=== PATIENT | male | born 1990 | race Two or more races ===

== ENCOUNTER 2017-08-07 01:44 | Emergency (ER) | payer MEDICAID ==
[~2017-08-07] VITALS: Ht 165.1 cm; Wt 90.7 kg
[~2017-08-07 01:44] MED LIST: CIPROFLOXACIN500 M2 ORAL; FLOMAX0.4 MG ORAL; GLUCOPHAGE500 MG PO; IBUPROFEN600 MG ORAL; KEFLEX500 MG ORAL; NORCO 5-325 TA1 EACH ORAL
[2017-08-07 01:55] VITALS: BP 145/91
[2017-08-07] MEDS ORDERED: ROBAXIN-750750 MG PO (02:07)
[2017-08-07] MEDS ORDERED: TYLENOL325 MG ORAL (02:07)
[2017-08-07 02:10] VITALS: BP 145/91
--- NOTE | 2017-08-07 02:38 | Emergency Room Report ---
History of Present Illness General Chief Complaint: Back Pain-No Injury Source: Patient Present Illness HPI 27-year-old male presents with 4 days of right upper back pain States she woke up with it one morning after sleeping on right side "awkwardly ". Has been taking Motrin for the last couple of days including a dose of aspirin today Was taking motrin [id number] on empty stomach and developed stomach pain and nausea 1 episode of vomiting denies any falls or trauma to the area Allergies: Coded Allergies: No Known Allergies (Verified , 05/31/10) Patient History Past Medical History: none Past Surgical History: none Pertinent Family History: none Social History: Denies: smoking, alcohol use, drug use Immunizations: UTD Reviewed Nursing Documentation: PMH: Agreed, PSxH: Agreed Nursing Documentation-PMH Hx Cardiac Problems: Yes Hx Hypertension: Yes Hx Diabetes: Yes Hx Cancer: No Hx Gastrointestinal Problems: No Hx Neurological Problems: No Hx Neurologic Surgery: No Review of Systems All Other Systems: negative except mentioned in HPI Physical Exam Vital Signs Date Time Temp Pulse Resp B/P (MAP) Pulse Ox O2 Delivery O2 Flow Rate FiO2 08/07/17 01:50 99.4 117 16 145/91 97 Room Air 99.3 Sp02 EP Interpretation: reviewed, normal General Appearance: normal inspection, well appearing, no apparent distress, alert, GCS 15, non-toxic Head: normocephalic, atraumatic Eyes: bilateral eye PERRL, bilateral eye EOMI ENT: normal ENT inspection, hearing grossly normal, normal pharynx, no angioedema, normal voice, TMs + canals normal, uvula midline, moist mucus membranes Neck: normal inspection, full range of motion, supple, thyroid normal, no meningismus, no bony tend Respiratory: normal inspection, lungs clear, normal breath sounds, no rhonchi, no respiratory distress, no retraction, no accessory muscle use, no wheezing, speaking full sentences Cardiovascular #1: regular rate, rhythm, no edema, no JVD, normal capillary refill Gastrointestinal: normal inspection, normal bowel sounds, non tender, soft, no mass, no peritonitis, non-distended, no guarding, no hernia, no pulsatile mass Genitourinary: no CVA tenderness Musculoskeletal: normal inspection, back normal, normal range of motion, no calf tenderness, pelvis stable, Itzel's Sign negative, other - Upper right thoracic back: palpable muscle tension/spasm Neurologic: normal inspection, alert, oriented x3, responsive, boarder machine III-XII nml as tested, motor strength/tone normal, cerebellar normal, normal gait, speech normal Psychiatric: normal inspection, judgement/insight normal, mood/affect normal, no suicidal/homicidal ideation, no delusions Skin: normal inspection, normal color, no rash Lymphatic: normal inspection, no adenopathy Medical Decision Making Diagnostic Impression: Primary Impression: Back pain Qualified Codes: M54.6 - Pain in thoracic spine ER Course Upper right thoracic back spasm ?gastritis from too much NSAID Only ONE dose of ASA, so low suspicion for ASA toxicity Advised him to AVOID NSAIDs Gave valium in ED ER course: Patient has remained stable during ED stay. Disposition: Patient is to be discharged to home. Prescriptions given are tylenol, robaxin Patient is instructed to follow up with their primary care doctor within 5 days. Strict return precautions discussed with patient such as fever, chills, worsening/severe pain, nausea, vomiting, which may indicate severe illness. Patient verbalizes understanding and agrees with plan. Please note that this Emergency Department Report was dictated using [employer] enlisted advisor technology software, occasionally this can lead to erroneous entry secondary to interpretation by the dictation equipment Last Vital Signs Date Time Temp Pulse Resp B/P (MAP) Pulse Ox O2 Delivery O2 Flow Rate FiO2 08/07/17 02:10 99.3 116 16 145/91 97 Room Air 99.3 Status: improved Disposition: HOME, SELF-CARE Condition: Improved Scripts Methocarbamol* (ROBAXIN-750*) 750 Mg Tablet 750 MG PO TID for 7 Days, #30 TAB 0 Refills Prov: ZIA HORVATH M.D. 08/07/17 Acetaminophen (Tylenol) 325 Mg Tablet 650 MG ORAL Q6H Y for Prn Pain/Headache/Temp > 101, #30 TAB 0 Refills Prov: ZIA HORVATH M.D. 08/07/17 Referrals: LACHELLE RODRIGUES,REFERRING (PCP) Patient Instructions: Back Pain, Adult ZIA HORVATH M.D. Aug 07, 2017 02:38
== END 2017-08-07 02:30 | disposition home or self-care (01) ==
LOC: EMR 02:13
DX: M54.6 Pain in thoracic spine (principal); I10 Essential (primary) hypertension; E11.9 Type 2 diabetes mellitus without complications
CPT/HCPCS: 99284

== ENCOUNTER 2019-04-24 21:53 | Observation (INO) | payer MEDICAID, OTHER ==
[~2019-04-24] VITALS: Ht 165.1 cm; Wt 90.7 kg
[2019-04-24 21:53] VITALS: BP 124/73
[~2019-04-24 21:53] MED LIST changes: +ROBAXIN-750750 MG PO; +TYLENOL325 MG ORAL
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
[2019-04-24] MEDS ORDERED: Tetanus/Diptheria/Pertussis IM ONE (22:15)
[2019-04-24] MEDS ORDERED: Augmentin 875mg Tab ORAL ONE (22:15)
[2019-04-24 23:21] LABS: ANION GAP 14 mmol/L (5-15); BLOOD UREA NITROGEN 9 mg/dL (7-18); CALCIUM 8.6 MG/DL (8.5-10.1); CARBON DIOXIDE 21 MMOL/L (21-32); CHLORIDE 105 MMOL/L (98-107); CREATININE 1.2 MG/DL (0.55-1.30); POTASSIUM 3.8 MMOL/L (3.5-5.1); SODIUM 140 MMOL/L (136-145)
--- NOTE | 2019-04-24 23:30 | NUR ---
ED Nurse Note: Patient resting comfortably withn o Addendum: 04/25/19 at 0049 by SUSANNA ED Nurse Note: Patient tolerated blood draw well, labs sent down. Patient is resting with law enforcement at bedside.
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
[2019-04-25] VITALS (11 sets, daily range): BP systolic 121–159; BP diastolic 74–99
--- NOTE | 2019-04-25 | NUR ---
ED Nurse Note: Patient rendered consent by surgeon. Patient verbalized understanding and signed consent form.
[2019-04-25 00:01] LABS: HEMATOCRIT 44.9 % (42.0-52.0); HEMOGLOBIN 15.3 G/DL (14.2-18.0); MEAN CORPUSCULAR VOLUME 84 FL (80-99); PLATELET COUNT 323 K/UL (150-450); RED BLOOD COUNT 5.35 M/UL (4.70-6.10); RED CELL DISTRIBUTION WIDTH 12.9 % (11.6-14.8)
[2019-04-25] MEDS ORDERED: CEPHALEXIN500 MG ORAL (00:06)
[2019-04-25] MEDS ORDERED: Morphine Sulfate 10mg/ml Inj ONE (00:14)
[2019-04-25] MEDS ORDERED: Midazolam 2mg/2ml Inj ONE (00:14)
[2019-04-25] MEDS ORDERED: Lidocaine 1% Plain 30 ml INJ ONE (00:33)
[2019-04-25] MEDS ORDERED: Bupivacaine 0.5% Inj 30 ml vial INJ ONE (00:33)
[2019-04-25] MEDS ORDERED: NeoSporin Gu Irrig 1ml Amp IRRIG ONE (00:33)
[2019-04-25] MEDS ORDERED: Bacitracin 50000 Units Vial ONE (00:33)
[2019-04-25] MEDS ORDERED: Succinylcholine 20mg/ml 10ml vial ONE (00:38)
--- NOTE | 2019-04-25 00:48 | NUR ---
ED Nurse Note: Patient being taken down for surgery.
[2019-04-25] MEDS ORDERED: fentaNYL 100 mcg/2 mL IV ONE (01:13)
[2019-04-25] MEDS ORDERED: Metoclopramide 10mg/2ml Inj ONE (01:35)
[2019-04-25] MEDS ORDERED: Lidocaine 1% MPF 10mg/ml 5ml ONE (01:35)
[2019-04-25] MEDS ORDERED: Propofol 200mg/20ml IV ONE (01:35)
[2019-04-25] MEDS ORDERED: Esmolol 100mg/10ml Inj ONE (01:35)
[2019-04-25] MEDS ORDERED: fentaNYL 100 mcg/2 mL IV PRN (02:15)
[2019-04-25] MEDS ORDERED: LORazepam Inj 2mg/ml 1ml IV PRN (02:15)
[2019-04-25] MEDS ORDERED: Ketorolac 30mg Inj IV PRN (02:15)
--- NOTE | 2019-04-25 02:19 | Anethesia Preoperative Eval ---
Anesthesia Pre-op PMH/ROS General Date of Evaluation: Apr 25, 2019 Time of Evaluation: 00:20 Anesthesiologist: ernestina ASA Score: ASA 2 Mallampati Score Class I : Soft palate, uvula, fauces, pillars visible Class II: Soft palate, uvula, fauces visible Class III: Soft palate, base of uvula visible Class IV: Only hard plate visible Mallampati Classification: Class III Surgeon: Tito Diagnosis: Hand Laceration Surgical Procedure: Left hand exploration Anesthesia History: none Social History: smoking, current smoker, alcohol use Family History: no anesthesia problems Allergies: Coded Allergies: No Known Allergies (Verified , 05/31/10) Medications: see eMAR Patient NPO?: Yes NPO Date: Apr 24, 2019 NPO Time: 15:00 Past Medical History Cardiovascular: Denies: HTN, CAD, PA, valve dz, arrhythmia, other Pulmonary: Denies: asthma, COPD, ERMELINDA, other Gastrointestinal/Genitourinary: Denies: GERD, CRI, ESRD, other Neurologic/Psychiatric: Denies: dementia, CVA, depression/anxiety, TIA, other Endocrine: Denies: DM, hypothyroidism, steroids, other HEENT: Denies: cataract (L), cataract (R), glaucoma, [place] (L), [place] (R), other Hematology/Immune: Denies: anemia, DVT, bleeding disorder, other Musculoskeletal/Integumentary: Denies: OA, RA, DJD, DDD, edema, other Other: obesity PSxH Narrative: none Anesthesia Pre-op Phys. Exam Physician Exam Last Vital Signs Date Time Temp Pulse Resp B/P (MAP) Pulse Ox O2 Delivery O2 Flow Rate FiO2 04/25/19 00:51 98.8 82 18 124/73 98 Room Air Constitutional: NAD Neurologic: CN 2-12 intact Cardiovascular: RRR Respiratory: CTA Gastrointestinal: S/NT/ND Airway Exam Mallampati Classification 3 Mallampati Score: Class III MO: full Neck: thick TMD: 1fb ROM: full Dentures: no upper, no lower Anesthesia Pre-op A/P Labs Hematology Test 04/24/19 23:56 White Blood Count 22.0 K/UL (4.8-10.8) H Red Blood Count 5.35 M/UL (4.70-6.10) Hemoglobin 15.3 G/DL (14.2-18.0) Hematocrit 44.9 % (42.0-52.0) Mean Corpuscular Volume 84 FL (80-99) Mean Corpuscular Hemoglobin 28.5 PG (27.0-31.0) Mean Corpuscular Hemoglobin Concent 34.0 G/DL (32.0-36.0) Red Cell Distribution Width 12.9 % (11.6-14.8) Platelet Count 323 K/UL (150-450) Mean Platelet Volume 7.2 FL (6.5-10.1) Neutrophils (%) (Auto) % (45.0-75.0) Lymphocytes (%) (Auto) % (20.0-45.0) Monocytes (%) (Auto) % (1.0-10.0) Eosinophils (%) (Auto) % (0.0-3.0) Basophils (%) (Auto) % (0.0-2.0) Differential Total Cells Counted 100 Neutrophils % (Manual) 82 % (45-75) H Lymphocytes % (Manual) 10 % (20-45) L Monocytes % (Manual) 8 % (1-10) Eosinophils % (Manual) 0 % (0-3) Basophils % (Manual) 0 % (0-2) Band Neutrophils 0 % (0-8) Platelet Estimate Adequate Platelet Morphology Normal Chemistry Test 04/24/19 22:55 Sodium Level 140 MMOL/L (136-145) Potassium Level 3.8 MMOL/L (3.5-5.1) Chloride Level 105 MMOL/L (98-107) Carbon Dioxide Level 21 MMOL/L (21-32) Anion Gap 14 mmol/L (5-15) Blood Urea Nitrogen 9 mg/dL (7-18) Creatinine 1.2 MG/DL (0.55-1.30) Estimat Glomerular Filtration Rate > 60 mL/min (>60) Glucose Level 172 MG/DL (74-106) H Calcium Level 8.6 MG/DL (8.5-10.1) Studies Pre-op Studies: EKG - SR Risk Assessment & Plan Plan: General Status Change Before Surgery: No Pre-Antibiotics Drug: ancef Given Within 1 Hr of Incision: Yes Time Given: 00:28 Mariann Anderson CRNA Apr 25, 2019 02:19
--- NOTE | 2019-04-25 02:21 | Immediate Post-Op Evaluation ---
Immediate Post-Op Evalulation Immediate Post-Op Evalulation Procedure: exp left hand laceration Date of Evaluation: Apr 25, 2019 Time of Evaluation: 02:20 IV Fluids: 700 Blood Products: 0 Estimated Blood Loss: 10 Blood Pressure Systolic: 140 Blood Pressure Diastolic: 92 Pulse Rate: 108 Respiratory Rate: 14 O2 Sat by Pulse Oximetry: 99 Temperature (Fahrenheit): 97.1 Nausea: No Vomiting: No Patient Status: awake, reacts, patent Hydration Status: adequate Drug: ancef Given Within 1 Hr of Incision: Yes Time Given: 00:28 Mariann Anderson CRNA Apr 25, 2019 02:21
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
[2019-04-25] MEDS ORDERED: HYDROcodone/Acetamin 7.5/325 tab ORAL PRN (02:30)
--- NOTE | 2019-04-25 02:35 | Plastic Surgery Progress Note ---
Plastic Surgery-Progress Note Subjective Day of Surgery: 04/25/19 Reason for Consult left hand laceration Procedure Performed Exploration of left hand laceration Closure of left hand laceration, 3cm, Simple Ligation of artery, likely common digital to ring and small finger Symptoms: improved Objective Last 24 Hour Vital Signs Date Time Temp Pulse Resp B/P (MAP) Pulse Ox O2 Delivery O2 Flow Rate FiO2 04/25/19 00:51 98.8 82 18 124/73 98 Room Air 04/24/19 21:53 98.8 82 18 124/73 98 Room Air 04/24/19 21:47 98.8 136 18 124/73 (90) 98 Room Air I&O Intake and Output 04/24/19 04/25/19 18:59 06:59 Intake Total 0 ml Balance 0 ml Intake Oral 0 ml Wound: clean, dry, intact Drains: none Extremities: other - left hand dressing clean and dry. digits with 2 sec capillary refill Laboratory Tests Test 04/24/19 22:55 04/24/19 23:56 Sodium Level 140 MMOL/L (136-145) Potassium Level 3.8 MMOL/L (3.5-5.1) Chloride Level 105 MMOL/L (98-107) Carbon Dioxide Level 21 MMOL/L (21-32) Anion Gap 14 mmol/L (5-15) Blood Urea Nitrogen 9 mg/dL (7-18) Creatinine 1.2 MG/DL (0.55-1.30) Estimat Glomerular Filtration Rate > 60 mL/min (>60) Glucose Level 172 MG/DL (74-106) H Calcium Level 8.6 MG/DL (8.5-10.1) White Blood Count 22.0 K/UL (4.8-10.8) H Red Blood Count 5.35 M/UL (4.70-6.10) Hemoglobin 15.3 G/DL (14.2-18.0) Hematocrit 44.9 % (42.0-52.0) Mean Corpuscular Volume 84 FL (80-99) Mean Corpuscular Hemoglobin 28.5 PG (27.0-31.0) Mean Corpuscular Hemoglobin Concent 34.0 G/DL (32.0-36.0) Red Cell Distribution Width 12.9 % (11.6-14.8) Platelet Count 323 K/UL (150-450) Mean Platelet Volume 7.2 FL (6.5-10.1) Neutrophils (%) (Auto) % (45.0-75.0) Lymphocytes (%) (Auto) % (20.0-45.0) Monocytes (%) (Auto) % (1.0-10.0) Eosinophils (%) (Auto) % (0.0-3.0) Basophils (%) (Auto) % (0.0-2.0) Differential Total Cells Counted 100 Neutrophils % (Manual) 82 % (45-75) H Lymphocytes % (Manual) 10 % (20-45) L Monocytes % (Manual) 8 % (1-10) Eosinophils % (Manual) 0 % (0-3) Basophils % (Manual) 0 % (0-2) Band Neutrophils 0 % (0-8) Platelet Estimate Adequate Platelet Morphology Normal Assessment Post-op Diagnosis Same as above Plan Problems: (1) Hand laceration Assessment & Plan: 29 yr male s/p left hand laceration repair - OK to discharge from plastic surgery standpoint - Can remove dressing in 1 week - Sutures removed in 2 weeks - Antibiotics (Keflex 500mg po x 8 days) for prescription for home- given by Er physician - Non weight bearing to Left upper extremity x 4 weeks - Keep hand elevated on 2-3 pillow for the next 72 hrs - May follow up with me in 2 weeks. can call [phone] to set up - For any questions, please dont hesitate to call my cell - [phone] Russ Arvizu M.D. Apr 25, 2019 02:35
[2019-04-25] MEDS ORDERED: Bacitracin Oint 15gm Tube TOPIC ONE (02:44)
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
--- NOTE | 2019-04-25 07:00 | NUR ---
NURSE NOTES: Dr. Gamboa notified of pt's location. No admission orders given. Informed Dr. Gamboa that Dr. bo's priviledges here at [place] are suspended.
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
--- NOTE | 2019-04-25 08:49 | NUR ---
NURSE NOTES: Pt b/p elevated b/p 166/112 Dr gave orders for Clonidine 0.1 one tab now. Denies headache, denies dizziness, states he feels anxious
[2019-04-25] MEDS: Cephalexin 500mg cap ORAL SCH ×2 (09:30→12:59)
--- NOTE | 2019-04-25 10:17 | NUR ---
*-* NO INSURANCE INFORMATION IN THE BAR UNABLE TO SEND CLINICALS OR REVIEWS *-*
--- NOTE | 2019-04-25 11:52 | NUR ---
NURSE NOTES: Pt is currently sleeping, Patient Clerical Assistant remain at bedside, pt is not handcuffed at this time. Pt assessed able to move extremities, has sensation to digits strength 3/5 .capillary refill less than 1. Denied any pain to hand upon assessment. Nail bed and skin color to hands normal in color
--- NOTE | 2019-04-25 12:32 | Diagnostic Imaging Report ---
Indication: left hand pain. Comparison: None Findings: 3 views of the left hand were obtained. Normal alignment is demonstrated. No acute fractures, erosions, or periosteal reaction are seen. There is moderate soft tissue swelling. IMPRESSION: Soft tissue swelling
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
--- NOTE | 2019-04-25 13:55 | NUR ---
NURSE NOTES: Spoke to property disposal officer Tommie regarding patient. Per officer Angelito: they are releasing patient from their custody and patient can go home after medically cleared. Patient will follow up with officer after discharge.
--- NOTE | 2019-04-25 14:06 | NUR ---
NURSE NOTES: Pt is no longer in police custody. Dr Carranza phoned to make him aware gave okay to discharge pt if cleared by surgery
--- NOTE | 2019-04-25 14:17 | NUR ---
NURSE NOTES: Dr Becerra phoned with number listed to , this is not the Dr number . Will follow up and look in pt chart for another number.
--- NOTE | 2019-04-25 14:21 | NUR ---
NURSE NOTES: Charge Nurse made aware that Dr does not work at medical group listed, referred group underwriter to housekeeping coordinator
--- NOTE | 2019-04-25 14:50 | NUR ---
NURSE NOTES: Dr Becerra reached for discharge clearance. Gave okay to discharge pt. Gave instructions to keep left hand elevated, for an additional 2 days, and to follow up with him in one to two weeks for assessment of wound. did not order any pain medication.Will give instructions to pt in regards to signs of infection, and activity limitation. Pt will be instructed not to do any heavy lifting for one month.
--- NOTE | 2019-04-25 15:38 | NUR ---
NURSE NOTES: Pt provided with discharge packet, to include s/s of infection, and limitations to hand. Pt currently has family friends in room, who will take him home. Police Officers have returned to room, to speak to pt they left roughly an hour ago. Pt is no longer under police custody. Encouraged pt to complete dose of antibiotics even if he did not have symptoms of infection for preventive measures status post surgery Verbalized understanding to not lift any thing heavy for 4 weeks and to follow up with his primary physician for his elevated blood pressure. IV removed, name tag removed, pt has belongings with him No complains of pain at this time, informed that Dr did not give him pain medication prescription , but if he experienced pain he could use extra strength Tylenol. Verbalized understanding
[2019-04-25] MEDS ORDERED: LR 1000ml ONE (16:09)
[2019-04-25] MEDS ORDERED: NS Irrig 1000ml ONE (16:09)
[2019-04-25] MEDS ORDERED: Sterile Water For Inj 1000ml IV ONE (16:09)
--- NOTE | 2019-04-25 16:27 | NUR ---
CASE MANAGEMENT:REVIEW 29 YR OLD MALE BIBA CC: LEFT PALM HAND LACERATION SI: LT HAND ARTERIAL BLEED 98.7 136 18 124/73 98% ON RA WBC+22.0 IS: TdP IM AMOXICILLIN PO XRAY LT HAND : TO MED/SURG PLAN: SURGERY 04/25/19 IS: TO SURGERY EXPLORATION OF LT HAND LACERATION CLOSURE OF LACERATION LIGATION OF ARTERY KEFLEX PO QID : MED/SURG STATUS PLAN: DISCHARGE HOME IF RELEASED FROM CUSTODY
--- NOTE | 2019-04-25 17:17 | 48 Hour Post Anesthesia Eval ---
Post Anesthesia Evaluation Procedure: exp left hand laceration Date of Evaluation: Apr 25, 2019 Time of Evaluation: 17:16 Blood Pressure Systolic: 121 0: 74 Pulse Rate: 68 Respiratory Rate: 20 Temperature (Fahrenheit): 97.6 O2 Sat by Pulse Oximetry: 98 Airway: patent Nausea: No Vomiting: No Pain Intensity: 2 Hydration Status: adequate Cardiopulmonary Status: stable Mental Status/LOC: patient returned to baseline Follow-up Care/Observations: n/a Post-Anesthesia Complications: none Follow-up care needed: ready to discharge Freddy Diaz MD Apr 25, 2019 17:17
--- NOTE | 2019-04-25 17:21 | Brief Operative Note ---
Immediate Post Operative Note Operative Note Pre-op Diagnosis: Left hand laceration, simple, Zone 3 Procedure: Exploration of left hand laceration Closure of left hand laceration, 3cm, Simple Ligation of artery, likely common digital to ring and small finger Post-op Diagnosis: Same as above Post-op Diagnosis: same as pre-op Findings: consistent w/pre-op dx studies - start time: 1am, end time 2 am. ligated common digital artery branch. no tendon injury. Surgeon: Russ Arvizu MD Demand Planning Manager: none Anesthesia: general - LMA Specimen: none Complications: none Condition: stable Fluids: 650cc NS Estimated Blood Loss: volume - 10cc Drains: none Tourniquet time: 6 - min Implant(s) used?: Russ Avery M.D. Apr 25, 2019 17:21
== END 2019-04-25 16:10 | disposition home or self-care (01) ==
LOC: EDBD 21:53 → EMR 22:17 → 4E 23:29 → EDBEDREQ 04-25 00:39 → 3E 04-25 02:49
DX: S65.515A Laceration of blood vessel of left ring finger, initial encounter (principal); S65.517A Laceration of blood vessel of left little finger, initial encounter; S61.412A Laceration without foreign body of left hand, initial encounter; S66.52 Laceration of intrinsic muscle, fascia and tendon of other and unspecified finger at wrist and hand level; X99.0XXA Assault by sharp glass, initial encounter; Y93.9 Activity, unspecified; Y92.018 Other place in single-family (private) house as the place of occurrence of the external cause; Y99.8 Other external cause status; Z87.442 Personal history of urinary calculi; F12.90 Cannabis use, unspecified, uncomplicated; I10 Essential (primary) hypertension; Z23 Encounter for immunization
CPT/HCPCS: 12002; 35207; 36415; 73120; 80048; 85007; 85025; 86850; 86900; 86901; 90471; 90715; 96374; J0690; J2001; J2250; J2270; J2405; J2704; J2765; J3010; J7120; S0020; Z7502; Z7512; 94003; 94150; 99285

== ENCOUNTER 2020-05-14 18:53 | Emergency (ER) | payer MEDICAID, OTHER ==
[~2020-05-14] VITALS: Ht 165.1 cm; Wt 9.1 kg
[~2020-05-14 18:53] MED LIST changes: +CEPHALEXIN500 MG ORAL
--- NOTE | 2020-05-14 19:23 | Emergency Room Report ---
History of Present Illness General Chief Complaint: Pain Source: Patient (Kat Sepulveda) Present Illness HPI 30-year-old male presents to the emergency department complaining of 8 out of 10 severity localized pain to the left wrist and hand with associated swelling x2 days. Patient denies appreciable recent trauma. Patient does report sustaining laceration in that area last year. Patient denies having symptoms similar to this in the past. He reports feeling feverish. He has a history of high blood pressure and diabetes. Patient denies any open wounds near the area that is affected. He denies paresthesias. Patient reports inability to open his left hand completely. Mild relief that is temporary with OTC Advil. pain exacerbated with palpation and movement of the left hand/wrist. (Kat Sepulveda) Allergies: Coded Allergies: No Known Allergies (Verified , 05/31/10) COVID-19 Screening Contact w/high risk pt: No Experienced COVID-19 symptoms?: No COVID-19 Testing performed MINERAL SURVEYING TECHNICIAN: No (Kat Sepulveda) Patient History Past Medical History: see triage record, DM, HTN Past Surgical History: none Pertinent Family History: none Reviewed Nursing Documentation: PMH: Agreed; PSxH: Agreed (Kat Sepulveda) Nursing Documentation-PMH Past Medical History: No History, Except For Hx Cardiac Problems: Yes Hx Hypertension: Yes Hx Diabetes: Yes Hx Cancer: No Hx Gastrointestinal Problems: No Hx Neurological Problems: No Hx Neurologic Surgery: No (Kat Sepulveda) Review of Systems All Other Systems: negative except mentioned in HPI (Kat Sepulveda) Physical Exam Vital Signs Date Time Temp Pulse Resp B/P (MAP) Pulse Ox O2 Delivery O2 Flow Rate FiO2 05/14/20 19:03 98.8 105 16 153/95 (114) 97 Room Air Sp02 EP Interpretation: reviewed, normal General Appearance: no apparent distress, alert, GCS 15, non-toxic Head: normocephalic, atraumatic Eyes: bilateral eye normal inspection, bilateral eye PERRL ENT: hearing grossly normal, normal voice Neck: full range of motion Respiratory: lungs clear, normal breath sounds, speaking full sentences Cardiovascular #1: regular rate, rhythm, tachycardia Cardiovascular #2: 2+ radial (R), 2+ radial (L) Musculoskeletal: gait/station normal, tender - Left wrist and proximal hand ( volar aspect) , ST swelling noted as well, no obvious recent skin injuries, previous laceration scar. , other - hand held in a fixed slightly flexed position. Neurologic: alert, motor strength/tone normal, oriented x3, sensory intact, responsive, speech normal Psychiatric: judgement/insight normal Skin: other - Left wrist and proximal hand ( volar aspect) , ST swelling noted as well, no obvious recent skin injuries, previous laceration scar. Lymphatic: no adenopathy (Kat Sepulveda) Medical Decision Making PA Attestation Dr. Mack Is my supervising Physician whom patient management has been discussed with. (Kat Sepulveda) Diagnostic Impression: Primary Impression: Tenosynovitis of left wrist ER Course 30-year-old male presents to the emergency department complaining of 8 out of 10 severity localized pain to the left wrist and hand with associated swelling x2 days. Patient denies appreciable recent trauma. Patient does report sustaining laceration in that area last year. Patient denies having symptoms similar to this in the past. He reports feeling feverish. He has a history of high blood pressure and diabetes. Patient denies any open wounds near the area that is affected. He denies paresthesias. Patient reports inability to open his left hand completely. Mild relief that is temporary with OTC Advil. pain exacerbated with palpation and movement of the left hand/wrist. Ddx considered but are not limited to cellulitis, gonococcal arthritis, Necrotizing fasciitis, fracture, d/L, gout/pseudogout, tendonitis just to name a few. Vital signs: Pt is tachycardic, remaining VS are WNL, pt. is afebrile H&PE are most consistent with extremely tender volar left wrist and proximal hand that is out of proportion to HPI. Suspect infection vs inflammation of the deeper tissues/structures. ORDERS: -CBC: -BMP: -Bld Cultures: -ESR: -CRP: ED INTERVENTIONS: -Toradol IV - Vancomycin IV - Unasyn: IV DISPOSITION: Pt. signed out to attending physician Dr. Mack pending labs and MRI. (Kat Sepulveda) ER Course Please see above note. Patient examined by me and also history obtained. Concern of extreme pain with passive range of motion in the median nerve tunnel. Labs and MRI ordered. Labs with normal white count but elevated ESR and C-reactive protein. MRI with tenosynovitis and edema. Splint and sling applied by technology teacher. Position excellent and distal neurovascular checked by me and normal. Patient reports improved pain with analgesia, treatment and splinting. Discussed findings with patient and the importance of close outpatient follow-up with his private doctor and also an training and development specialist. The possibility of infectious etiology of the inflammation is low. However patient covered with Keflex. Patient given strict advice to return if his hand is worsening or there is numbness. Patient stable for outpatient observation and treatment. Laboratory Tests Test 05/14/20 19:20 White Blood Count 8.6 K/UL (4.8-10.8) Red Blood Count 5.05 M/UL (4.70-6.10) Hemoglobin 14.5 G/DL (14.2-18.0) Hematocrit 41.3 % (42.0-52.0) L Mean Corpuscular Volume 82 FL (80-99) Mean Corpuscular Hemoglobin 28.7 PG (27.0-31.0) Mean Corpuscular Hemoglobin Concent 35.1 G/DL (32.0-36.0) Red Cell Distribution Width 13.9 % (11.6-14.8) Platelet Count 235 K/UL (150-450) Mean Platelet Volume 9.3 FL (6.5-10.1) Neutrophils (%) (Auto) 65.0 % (45.0-75.0) Lymphocytes (%) (Auto) 21.9 % (20.0-45.0) Monocytes (%) (Auto) 11.2 % (1.0-10.0) H Eosinophils (%) (Auto) 0.9 % (0.0-3.0) Basophils (%) (Auto) 1.0 % (0.0-2.0) Erythrocyte Sedimentation Rate 56 MM/HR (0-15) H Sodium Level 141 MMOL/L (136-145) Potassium Level 4.0 MMOL/L (3.5-5.1) Chloride Level 108 MMOL/L (98-107) H Carbon Dioxide Level 24 MMOL/L (21-32) Anion Gap 9 mmol/L (5-15) Blood Urea Nitrogen 9 mg/dL (7-18) Creatinine 0.8 MG/DL (0.55-1.30) Estimated Glomerular Filtration Rate > 60 mL/min (>60) Glucose Level 112 MG/DL (74-106) H Lactic Acid Level 1.30 mmol/L (0.4-2.0) Calcium Level 8.7 MG/DL (8.5-10.1) C-Reactive Protein, Quantitative 7.3 mg/dL (0.00-0.90) H (Isaac Mack MD) CT/MRI/US Diagnostic Results CT/MRI/US Diagnostic Results : Imaging Test Ordered: MRI wrist with contrast Impression Pending at time of sign out. (Kat Sepulveda) CT/MRI/US Diagnostic Results : Imaging Test Ordered: Left wrist MRI Impression Moderate tenosynovitis of the flexor tendons with edema in the carpal tunnel resulting in a convex margin of the flexor retinaculum, which could be seen in the clinical setting of carpal tunnel syndrome. (Isaac Mack MD) Last Vital Signs Date Time Temp Pulse Resp B/P (MAP) Pulse Ox O2 Delivery O2 Flow Rate FiO2 05/14/20 19:03 98.8 105 16 153/95 (114) 97 Room Air (Kat Sepulveda) Last Vital Signs Date Time Temp Pulse Resp B/P (MAP) Pulse Ox O2 Delivery O2 Flow Rate FiO2 05/15/20 00:25 98.2 82 16 128/92 97 Room Air Status: improved (Isaac Mack MD) Disposition: HOME, SELF-CARE Condition: Improved Scripts Acetaminophen (Tylenol) 325 Mg Tablet 650 MG ORAL Q6H PRN for Prn Pain/Headache/Temp > 101, #20 TAB 0 Refills Prov: Isaac Mack MD 05/14/20 Ibuprofen* (MOTRIN*) 600 Mg Tablet 600 MG ORAL Q6H PRN for FOR PAIN, #20 TAB 0 Refills Prov: Isaac Mack MD 05/14/20 Cephalexin* (KEFLEX*) 500 Mg Capsule 500 MG ORAL EVERY 6 HOURS, #28 CAP Prov: Isaac Mack MD 05/14/20 Kat Sepulveda May 14, 2020 19:23 Isaac Mack MD May 14, 2020 20:27
[2020-05-14 19:45] VITALS: BP 153/95
[2020-05-14] MEDS ORDERED: Gadavist 7.5mMol/7.5ml vial IV PRN ×2 (20:00)
[2020-05-14] MEDS ORDERED: Piperacillin/Tazobactam 3.375 GM in NS 110 ML IVPB ONE (20:15)
[2020-05-14] MEDS ORDERED: Vancomycin 1.5gm/300ml Premix 300 ML IVPB ONE (20:15)
[2020-05-14] MEDS ORDERED: Ketorolac 30mg Inj IV ONE (20:30)
[2020-05-14 20:51] LABS: ANION GAP 9 mmol/L (5-15); BLOOD UREA NITROGEN 9 mg/dL (7-18); CALCIUM 8.7 MG/DL (8.5-10.1); CARBON DIOXIDE 24 MMOL/L (21-32); CHLORIDE 108 MMOL/L (98-107); CREATININE 0.8 MG/DL (0.55-1.30); SODIUM 141 MMOL/L (136-145)
[2020-05-14 20:57] LABS: EOSINOPHILS % (AUTO) 0.9 % (0.0-3.0); HEMATOCRIT 41.3 % (42.0-52.0); HEMOGLOBIN 14.5 G/DL (14.2-18.0); LYMPHOCYTES % (AUTO) 21.9 % (20.0-45.0); MEAN CORPUSCULAR VOLUME 82 FL (80-99); MONOCYTES % (AUTO) 11.2 % (1.0-10.0); PLATELET COUNT 235 K/UL (150-450); RED BLOOD COUNT 5.05 M/UL (4.70-6.10); RED CELL DISTRIBUTION WIDTH 13.9 % (11.6-14.8); WHITE BLOOD COUNT 8.6 K/UL (4.8-10.8)
--- NOTE | 2020-05-14 22:35 | Diagnostic Imaging Report ---
EXAM: MR Left Upper Extremity With Intravenous Contrast, Wrist CLINICAL HISTORY: PAIN TECHNIQUE: Multiplanar magnetic resonance images of the left wrist with intravenous contrast. COMPARISON: X-ray hand and wrist 05/14/2020. FINDINGS: LIGAMENTS: Scapholunate: Unremarkable. Lunotriquetral: Unremarkable. TENDONS: Flexor compartments: Moderate tenosynovitis of the flexor tendons of the wrist and hand most pronounced involving the flexor superficialis of the fourth digit. There is edema within the carpal tunnel and a convex margin of the flexor retinaculum which could be seen in the clinical setting of carpal tunnel syndrome. Extensor compartments: Unremarkable. NERVES: Median: Unremarkable. Ulnar: Unremarkable. Muscles: Unremarkable. Fluid: Unremarkable. No joint effusion. Cartilage: Unremarkable. Triangular fibrocartilage complex: Unremarkable. Bones/joints: See above. Soft tissues: Subcutaneous edema within the lateral aspect of the wrist. IMPRESSION: Moderate tenosynovitis of the flexor tendons with edema in the carpal tunnel resulting in a convex margin of the flexor retinaculum, which could be seen in the clinical setting of carpal tunnel syndrome.
[2020-05-14] MEDS ORDERED: TYLENOL325 MG ORAL (23:05)
[2020-05-14] MEDS ORDERED: CEPHALEXIN500 MG ORAL (23:05)
[2020-05-14] MEDS ORDERED: IBUPROFEN600 M1 ORAL (23:05)
[2020-05-15 00:25] VITALS: BP 128/92
--- NOTE | 2020-05-15 11:37 | Diagnostic Imaging Report ---
Indication: Wrist pain. Technique: 3 views of the left wrist Comparison: None Findings: Bony mineralization within normal limits. No acute fracture is identified. No radiopaque foreign body. Impression: No acute fracture or dislocation.
--- NOTE | 2020-05-15 11:39 | Diagnostic Imaging Report ---
Indication: Hand pain. Technique: 3 views of the left hand Comparison: None Findings: Bony mineralization is within normal limits. No acute fracture is identified. No dislocation is seen. The fingers are held in slight flexion on all views, nonspecific finding. No radiopaque foreign body. Impression: No acute fracture or dislocation.
== END 2020-05-15 00:25 | disposition home or self-care (01) ==
LOC: EMR 19:19
DX: M65.842 Other synovitis and tenosynovitis, left hand (principal); I11.9 Hypertensive heart disease without heart failure; E11.9 Type 2 diabetes mellitus without complications
CPT/HCPCS: 29125; 36415; 73110; 73130; 73222; 80048; 83605; 85025; 85651; 86140; 96365; 96366; 96367; 96375; A9585; J1885; J2543; J3370; Z7502; 99284